=== PATIENT | male | born 1985 | race Caucasian/White ===

== ENCOUNTER 2017-03-03 13:13 | Emergency (ER) | payer SELFPAY ==
[2017-03-03] MEDS ORDERED: MORPHINE SULFATE INJ 10 MG/ML VIAL IV ONE (13:21)
[2017-03-03] MEDS ORDERED: SODIUM CHLORIDE 0.9% 1000ML 1,000 ML IVS ONE (13:22)
[2017-03-03 13:29] VITALS: O2SAT 100
--- NOTE | 2017-03-03 14:26 | CT ---
Procedure: CT HEAD WITHOUT IV CONTRAST Exam Date: 03/03/2017 1:19 PM ENERGY TRADING ANALYST Ordering Provider: Kaleb Portillo Clinical Indication: fell off roof Comparison: None Technique: CT images of the head were obtained without contrast administration. Coronal and sagittal reformats were obtained. This exam was performed according to our departmental dose-optimization program which includes automated exposure control, adjustment of the mA and/or kV according to patient size and/or use of iterative reconstruction technique. Findings: There is no acute cortical infarction, hemorrhage, midline shift, mass effect, or hydrocephalus. The calvaria and skull base are unremarkable. Paranasal sinuses and mastoid air cells are well aerated. Impression: 1. No acute intracranial abnormality. Procedure: CT CERVICAL SPINE WITHOUT IV contrast Exam Date: 03/03/2017 1:19 PM ENERGY TRADING ANALYST Ordering Provider: Kaleb Portillo Clinical Indication: fell off roof Comparison: None Technique: CT images of the cervical spine were obtained without intravenous contrast administration. Coronal and sagittal reformations were provided for further characterization. This exam was performed according to our departmental dose-optimization program which includes automated exposure control, adjustment of the mA and/or kV according to patient size and/or use of iterative reconstruction technique. Findings: Vertebral body heights are maintained. The alignment is normal. The dens is intact. No evidence of fracture. No prevertebral soft tissue edema. Multilevel, multifactorial spondylosis is present with disc protrusions and disc osteophyte complexes at multiple levels but no high-grade central canal stenosis is present. Faint groundglass opacities and centrilobular nodules are seen in the bilateral upper lobes possibly from bronchiolitis Impression: No CT evidence for acute cervical osseous injury. Electronically signed by: Jordan To MD 03/03/2017 2:25 PM ENERGY TRADING ANALYST
--- NOTE | 2017-03-03 14:26 | CT ---
Procedure: CT HEAD WITHOUT IV CONTRAST Exam Date: 03/03/2017 1:19 PM TEN PIN BOWLING CENTRE MANAGER Ordering Provider: Kaleb Portillo Clinical Indication: fell off roof Comparison: None Technique: CT images of the head were obtained without contrast administration. Coronal and sagittal reformats were obtained. This exam was performed according to our departmental dose-optimization program which includes automated exposure control, adjustment of the mA and/or kV according to patient size and/or use of iterative reconstruction technique. Findings: There is no acute cortical infarction, hemorrhage, midline shift, mass effect, or hydrocephalus. The calvaria and skull base are unremarkable. Paranasal sinuses and mastoid air cells are well aerated. Impression: 1. No acute intracranial abnormality. Procedure: CT CERVICAL SPINE WITHOUT IV contrast Exam Date: 03/03/2017 1:19 PM TEN PIN BOWLING CENTRE MANAGER Ordering Provider: Kaleb Portillo Clinical Indication: fell off roof Comparison: None Technique: CT images of the cervical spine were obtained without intravenous contrast administration. Coronal and sagittal reformations were provided for further characterization. This exam was performed according to our departmental dose-optimization program which includes automated exposure control, adjustment of the mA and/or kV according to patient size and/or use of iterative reconstruction technique. Findings: Vertebral body heights are maintained. The alignment is normal. The dens is intact. No evidence of fracture. No prevertebral soft tissue edema. Multilevel, multifactorial spondylosis is present with disc protrusions and disc osteophyte complexes at multiple levels but no high-grade central canal stenosis is present. Faint groundglass opacities and centrilobular nodules are seen in the bilateral upper lobes possibly from bronchiolitis Impression: No CT evidence for acute cervical osseous injury. Electronically signed by: Jordan To MD 03/03/2017 2:25 PM TEN PIN BOWLING CENTRE MANAGER
--- NOTE | 2017-03-03 14:32 | RAD ---
Procedure: Three views right wrist Exam Date: 03/03/2017 1:19 PM COMMUNICATIONS STATION MANAGER Ordering Provider: Kaleb Portillo Clinical Indication: fell off roof Comparison: None Findings: Lateral view is suboptimal. There is an obliquely oriented nondisplaced but slightly impacted fracture of the distal radial metaphysis. There is an avulsion fracture involving the ulnar styloid process. There is surrounding soft tissue swelling. IMPRESSION: Fractures involving the distal radius and ulna, as described Procedure: XR CHEST 1 VIEW,. Exam Date: 03/03/2017 1:19 PM COMMUNICATIONS STATION MANAGER Ordering Provider: Kaleb Portillo Clinical Indication: fell off roof Comparison: None Findings: Lungs are clear. Heart size is within normal limits. No acute osseous abnormality. Impression: No acute pulmonary process. Procedure: Two views left shoulder Exam Date: 03/03/2017 1:19 PM COMMUNICATIONS STATION MANAGER Ordering Provider: Kaleb Portillo Clinical Indication: fell off roof Comparison: None Findings: No fracture, focal osseous destruction, or malalignment. Joint spaces are preserved. Soft tissues are unremarkable. IMPRESSION: No acute osseous abnormality. Electronically signed by: Jordan To MD 03/03/2017 2:30 PM COMMUNICATIONS STATION MANAGER
--- NOTE | 2017-03-03 14:32 | RAD ---
Procedure: Three views right wrist Exam Date: 03/03/2017 1:19 PM ROUTER TENDER Ordering Provider: Kaleb Portillo Clinical Indication: fell off roof Comparison: None Findings: Lateral view is suboptimal. There is an obliquely oriented nondisplaced but slightly impacted fracture of the distal radial metaphysis. There is an avulsion fracture involving the ulnar styloid process. There is surrounding soft tissue swelling. IMPRESSION: Fractures involving the distal radius and ulna, as described Procedure: XR CHEST 1 VIEW,. Exam Date: 03/03/2017 1:19 PM ROUTER TENDER Ordering Provider: Kaleb Portillo Clinical Indication: fell off roof Comparison: None Findings: Lungs are clear. Heart size is within normal limits. No acute osseous abnormality. Impression: No acute pulmonary process. Procedure: Two views left shoulder Exam Date: 03/03/2017 1:19 PM ROUTER TENDER Ordering Provider: Kaleb Portillo Clinical Indication: fell off roof Comparison: None Findings: No fracture, focal osseous destruction, or malalignment. Joint spaces are preserved. Soft tissues are unremarkable. IMPRESSION: No acute osseous abnormality. Electronically signed by: Jordan To MD 03/03/2017 2:30 PM ROUTER TENDER
--- NOTE | 2017-03-03 14:32 | RAD ---
Procedure: Three views right wrist Exam Date: 03/03/2017 1:19 PM BUSINESS TRANSFORMATION MANAGER Ordering Provider: Kaleb Portillo Clinical Indication: fell off roof Comparison: None Findings: Lateral view is suboptimal. There is an obliquely oriented nondisplaced but slightly impacted fracture of the distal radial metaphysis. There is an avulsion fracture involving the ulnar styloid process. There is surrounding soft tissue swelling. IMPRESSION: Fractures involving the distal radius and ulna, as described Procedure: XR CHEST 1 VIEW,. Exam Date: 03/03/2017 1:19 PM BUSINESS TRANSFORMATION MANAGER Ordering Provider: Kaleb Portlilo Clinical Indication: fell off roof Comparison: None Findings: Lungs are clear. Heart size is within normal limits. No acute osseous abnormality. Impression: No acute pulmonary process. Procedure: Two views left shoulder Exam Date: 03/03/2017 1:19 PM BUSINESS TRANSFORMATION MANAGER Ordering Provider: Kaleb Portillo Clinical Indication: fell off roof Comparison: None Findings: No fracture, focal osseous destruction, or malalignment. Joint spaces are preserved. Soft tissues are unremarkable. IMPRESSION: No acute osseous abnormality. Electronically signed by: Jordan To MD 03/03/2017 2:30 PM BUSINESS TRANSFORMATION MANAGER
--- NOTE | 2017-03-03 15:44 | ED.PDOC ---
History of Present Illness - General Chief Complaint: Trauma Stated Complaint: R wrist/forearm & L shoulder pain, lacerations Time Seen by Provider: 03/03/17 13:18 Source: patient Exam Limitations: no limitations - History of Present Illness Initial Comments: the patient is a 31-year-old male presenting to the emergency room secondary to falling off a roof approximately 10 foot in the air. The patient apparently landed while trying to catch himself with his right arm and then his left arm. He has pain around the distal radius and ulna on the right arm. He has some pain in the left shoulder with passive and active range of motion. There is minimal deformity at the right wrist. There is no crepitus. I feel no deformity of the left shoulder. He does appear to be neurovascularly intact. He does have a few mild abrasions on his face. He is ambulatory upon arrival. He does have a few mild abrasions on his lower extremities as well. No significant lacerations requiring repair. He is alert and oriented 4. Timing/Duration: momentarily Severity: moderate Improving Factors: immobilization Worsening Factors: movement Associated Symptoms: denies symptoms Allergies/Adverse Reactions: Allergies Sulfa Antibiotics Allergy (Verified 10/10/15 23:05) Home Medications: Ambulatory Orders Clindamycin HCl 300 mg PO Q8H #30 cap 10/10/15 Vyvanse 10/10/15 [id number]-[id number] [Fioricet] 1 ea PO Q8H PRN #21 tab 03/03/17 Review of Systems - Review of Systems Constitutional: States: no symptoms reported EENTM: States: no symptoms reported Respiratory: States: no symptoms reported Cardiology: States: no symptoms reported Gastrointestinal/Abdominal: States: no symptoms reported Genitourinary: States: no symptoms reported Musculoskeletal: States: joint pain Skin: States: see HPI Neurological: States: no symptoms reported Endocrine: States: no symptoms reported All other Systems: No Change from Baseline Past Medical History (General) - Patient Medical History Hx Stroke: No Hx Congestive Heart Failure: No Hx Diabetes: No Hx MRSA: No Surgical History: other - Vaccination History Hx Tetanus, Diphtheria Vaccination: Yes Hx Influenza Vaccination: No Hx Pneumococcal Vaccination: No - Social History Hx Tobacco Use: Yes Family Medical History - Family History Mother Family History: No Known Living Status: Still Living Physical Exam - Physical Exam General Appearance: Alert, Anxious Eye Exam: bilateral normal Ears, Nose, Throat: hearing grossly normal, normal ENT inspection, normal pharynx, other - midface is stable. No evidence of CSF drainage from nares or ear canals. Neck: full range of motion, supple, normal inspection Respiratory: chest non-tender, lungs clear, normal breath sounds, no respiratory distress, no accessory muscle use Cardiovascular/Chest: normal peripheral pulses, regular rate, rhythm, no edema Peripheral Pulses: radial,right: 2+, radial,left: 2+, dorsalis pedis,right: 2+, dorsalis pedis,left: 2+ Gastrointestinal/Abdominal: non tender, soft, other - no evidence of pelvic instability. he patient is ambulatory without pain. Rectal Exam: deferred Back Exam: normal inspection, no CVA tenderness, no vertebral tenderness Extremity: no pedal edema, no calf tenderness, normal capillary refill, other - the patient has diffuse discomfort to palpation over the left shoulder. There is no gross deformity. There is no swelling. He does have some pain with both active and passive range of motion. Sensation is preserved. The patient has significant pain and some swelling around the right wrist. There is no obvious bony deformity however. Alignment appears good. He does appear neurovascularly intact in the right upper extremity. Neurologic: party host/hostess II-XII nml as tested, no motor/sensory deficits, alert, normal mood/affect, oriented x 3 Skin Exam: normal color - the patient does have several abrasions to the face but none or require repair. Comments: Vital Signs - 24 hr 03/03/17 13:27 Temperature 97.6 F Pulse Rate [ 100 H Left Radial] Respiratory 22 Rate Blood Pressure 144/89 [Left Arm] O2 Sat by Pulse 100 Oximetry Progress - Progress Progress: 03/03/17 15:48 the patient is a 31-year-old male presenting to the emergency room secondary to falling off of the roof. His main injury is a distal radius and distal ulna fracture that are minimally displaced. The patient was placed in a short arm splint. He needs to follow-up with orthopedics early this week for reevaluation to make sure no further measures are going to need to be taken. He does need to keep the arm in a sling. Fioricet will be written for pain control. He can additionally take Motrin as needed. Lab work and other radiology appear reassuring. - Results/Orders Results/Orders: Laboratory Results - last 24 hr 03/03/17 03/03/17 03/03/17 13:35 13:35 15:00 WBC 8.3 RBC 4.60 L Hgb 14.1 Hct 41.8 L MCV 90.8 MCH 30.6 MCHC 33.7 RDW 13.8 Plt Count 303 MPV 6.7 L Absolute Neuts (auto) 3.80 Absolute Lymphs (auto) 3.40 Absolute Monos (auto) 0.80 Absolute Eos (auto) 0.20 Absolute Basos (auto) 0.10 Neutrophils % 46.0 Lymphocytes % 41.5 Monocytes % 9.8 H Eosinophils % 2.0 Basophils % 0.7 Sodium 139 Potassium 3.5 L Chloride 104 Carbon Dioxide 26 Anion Gap 12.5 BUN 14 Creatinine 0.92 BUN/Creatinine Ratio 15.2 Random Glucose 102 Serum Osmolality 278.2 Calcium 9.1 Total Bilirubin 1.1 H AST 60 H ALT 43 Alkaline Phosphatase 96 Serum Total Protein 7.0 Albumin 4.7 Globulin 2.3 Albumin/Globulin Ratio 2.0 H Urine Color Yellow Urine Appearance Clear Urine pH 6.0 Ur Specific Amado >= 1.030 Urine Protein Negative Urine Glucose (UA) Negative Urine Ketones Trace Urine Blood Negative Urine Nitrite Negative Urine Bilirubin Negative Urine Urobilinogen 1.0 Ur Leukocyte Esterase Negative Urine RBC 0 Urine WBC 0 Ur Epithelial Cells 0 Urine Bacteria 0 chest x-ray, left shoulder x-ray, head CT, CT of the cervical spine show no evidence of acute trauma. Left wrist x-ray shows an oblique fracture through the distal radius with minimal displacement. There is mild impaction. There is an ulnar styloid evulsion. Departure - Departure Clinical Impression: Closed fracture of right wrist Qualifiers: Encounter type: initial encounter Qualified Code(s): S62.101A - Fracture of unspecified carpal bone, right wrist, initial encounter for closed fracture Disposition: Discharge to Home or Self Care Condition: Fair Departure Forms: ED Discharge - Pt. Copy, Patient Portal Self Enrollment Diet: regular diet Activity: no pushing/pulling with affected limb Prescriptions: Hugmhwrxtmdaf-Wtox-Vhuxvcouzm [Fioricet] 1 ea PO Q8H PRN #21 tab PRN Reason: Pain Home Medications: Ambulatory Orders Clindamycin HCl 300 mg PO Q8H #30 cap 10/10/15 Vyvanse 10/10/15 Ubfgyjeqczmrd-Jivr-Dvdeoagafh [Fioricet] 1 ea PO Q8H PRN #21 tab 03/03/17 Additional Instructions: the patient is a 31-year-old male presenting to the emergency room secondary to falling off of the roof. His main injury is a distal radius and distal ulna fracture that are minimally displaced. The patient was placed in a short arm splint. He needs to follow-up with orthopedics early this week for reevaluation to make sure no further measures are going to need to be taken. He does need to keep the arm in a sling. Fioricet will be written for pain control. He can additionally take Motrin as needed. Lab work and other radiology appear reassuring.
[2017-03-03 17:33] VITALS: BP 127/73; TEMP 98
== END 2017-03-03 16:00 | disposition home or self-care (01) ==
LOC: ER 13:13
DX: S62.101A Fracture of unspecified carpal bone, right wrist, initial encounter for closed fracture (principal); Z88.2 Allergy status to sulfonamides; W13.2XXA Fall from, out of or through roof, initial encounter; Y92.9 Unspecified place or not applicable
CPT/HCPCS: 36415; 70450; 71010; 72125; 73030; 73110; 80053; 81001; 85025; J2270; J7030